=== PATIENT | male | born 1965 | race Caucasian/White ===

== ENCOUNTER 2020-06-14 20:11 | Emergency (ER) | payer MEDICARE ==
[~2020-06-14 20:11] MED LIST: AUGMENTIN 875-1 EACH PO; FLEXERIL 10 MG10 MG PO; LODINE CAP 300300 MG PO
[2020-06-14] MEDS ORDERED: CLINDAMYCIN HC150 MG PO (20:57)
== END 2020-06-14 21:16 | disposition home or self-care (01) ==
LOC: ER1 20:11
DX: S91.331A Puncture wound without foreign body, right foot, initial encounter (principal); E11.9 Type 2 diabetes mellitus without complications; I10 Essential (primary) hypertension; Z79.01 Long term (current) use of anticoagulants; F17.290 Nicotine dependence, other tobacco product, uncomplicated; W45.0XXA Nail entering through skin, initial encounter; Z23 Encounter for immunization
CPT/HCPCS: 90471; 90715; 99283